=== PATIENT | female | born 1945 | race Caucasian/White ===

== ENCOUNTER 2017-01-22 21:52 | Emergency (ER) | payer MEDICARE, OTHER ==
--- NOTE | ~2017-01-22 | ER ---
PATIENT'S NAME: GERARDO DASILVA [facility] AGE: 71 Y [address] ROOM: [place] [id number] LOCATION: [facility] ADMIT DATE: 01/22/2017 ER/Outpatient Report DISCHARGE DATE: 01/22/2017 FAMILY PHYSICIAN: Edward Dee MD ATTENDING PHYSICIAN: Regan Cardenas ADDENDUM: Accumulated critical care time 30 minutes. MD DUSTIN RIBERA/modl /[id number] d: 01/23/17 0127 t: 01/23/17 1824, OUTPATIENT REPORT
--- NOTE | ~2017-01-22 | ER ---
PATIENT'S NAME: GERARDO DASILVA [facility] AGE: 71 Y [address] ROOM: [place] [address] LOCATION: [facility] ADMIT DATE: 01/22/2017 ER/Outpatient Report DISCHARGE DATE: 01/22/2017 FAMILY PHYSICIAN: Edward Dee MD ATTENDING PHYSICIAN: Regan Cardenas Admission date and time are documented on the medical record. I saw the patient at 2205 hours. CHIEF COMPLAINT: Right arm numbness and slurred speech. HISTORY OF PRESENT ILLNESS: This patient is a 71-year-old female who about an hour prior to admission to the emergency room had onset of some right arm numbness from her fingertips up to her midupper arm accompanied with some slurred speech. On arrival here to the emergency room, her numbness had pretty much resolved, and her slurred speech had resolved. The patient denied any headache, eyes, ears, nose, throat, neck, or spine pain. No fall or trauma. She has had a recent upper respiratory congestive problem; otherwise, no cough, colds, flus, fever, chills, or sweats. She was little bit lightheaded and dizzy, but no syncope or near syncope. No vertigo. No chest pain or shortness of breath. No abdominal pain, nausea, vomiting, or diarrhea. No urinary frequency, urgency, or dysuria. No joint or muscle swelling, redness, or pain. No skin eruptions or rash. No history of previous CVA, TIA, or seizure disorder. Does have hypothyroidism, but no diabetes. No depression, anxiety, or psychosis. HOME MEDICATIONS: See attached medication list. ALLERGIES: ERYTHROMYCIN, PENICILLIN. SOCIAL HISTORY: The patient smokes a pack of cigarettes per day and nondrinker. SIGNIFICANT PAST MEDICAL HISTORY: Atherosclerotic ischemic heart disease with coronary artery disease, carotid occlusive disease, tobacco abuse, dyslipidemia, and hypothyroidism. OPERATIONS: Cardiac catheterization with PTCA and stenting; also, had a carotid stent placed about 4 weeks ago. REVIEW OF SYSTEMS: PATIENT'S NAME: GERARDO DASILVA [facility] AGE: 71 Y [address] ROOM: [place] [address] LOCATION: [facility] ADMIT DATE: 01/22/2017 ER/Outpatient Report DISCHARGE DATE: 01/22/2017 FAMILY PHYSICIAN: Edward Dee MD ATTENDING PHYSICIAN: Regan Cardenas All systems reviewed by me are negative with the exception of those discussed in the history of present illness. PHYSICAL EXAMINATION: VITAL SIGNS: Blood pressure 141/71. [place] Coma Scale was 15. HEAD: Normocephalic. EYES: Extraocular muscles intact. PERRL. Sclerae and conjunctivae clear, nonicteric. EARS: Clear TMs bilaterally. NOSE: Clear. THROAT: Clear. Mucous membranes moist. Teeth, jaw intact. NECK: No nuchal rigidity. No thyromegaly or cervical adenopathy. No carotid bruits. No tenderness. SPINE: Negative. LUNGS: Clear. Good air flow. No rales, rhonchi, or wheezes. HEART: Regular. Pulses palpable. ABDOMEN: Soft, nondistended, nontender. Good bowel tones. No organomegaly or abnormal mass palpable. EXTREMITIES: Intact. No peripheral edema, cyanosis, or deformity. NEURO: NIH stroke scale was 0. SKIN: Clear. LABORATORY DATA: CT scans of the brain showed no acute hemorrhage, midline shift, mass effect, or skull fracture. CT scan was read by Radiology, see dictated transcribed report. Renal panel was normal. Accu-Chek was 106. White count was 8000, 44 segs, 43 lymphs, 9 monos, 3 eos, 1 baso, hemoglobin is 12.9 with hematocrit 39.6, and platelet count is 249,000. PTT was 26, pro-time is 10 with an INR 0.95. Troponin was less than 0.04. EKG showed sinus rhythm, some questionable inferior changes. No acute ST elevation or arrhythmia. IMPRESSION: 1. Transient right arm paresthesia with slurred speech, etiology uncertain, but may be a transient ischemic attack. No evidence of cerebrovascular accident at this time. Her NIH stroke scale was 0. CT scan of the head was negative. 2. Atherosclerotic ischemic heart disease with coronary artery disease. 3. Tobacco abuse. 4. Carotid occlusive disease. 5. Dyslipidemia. 6. Hypothyroidism. PLAN: The patient was dismissed home. Observation. Activity as tolerated. Continue present home medications and care. Fluids and diet as tolerated. PATIENT'S NAME: GEARRDO DASILVA [facility] AGE: 71 Y [address] ROOM: [place] [id number] LOCATION: [facility] ADMIT DATE: 01/22/2017 ER/Outpatient Report DISCHARGE DATE: 01/22/2017 FAMILY PHYSICIAN: Edward Dee MD ATTENDING PHYSICIAN: Regan Cardenas Follow up with personal physician 2 to 3 days for followup exam. Encouraged the patient to stop smoking. Discussed ensued with the patient concerning my findings and recommendations, she understands. MD DUSTIN RIBERA/modl /[id number] d: 01/23/17 0200 t: 01/23/171821, OUTPATIENT REPORT
[2017-01-22 22:09] LABS: BASOPHIL # 0.1 K/uL (0.0-0.2); BASOPHIL % 0.8 %; EOSINOPHIL # 0.2 K/uL (0.0-0.5); HEMATOCRIT 39.6 % (33.0-46.0); HEMOGLOBIN 12.9 g/dL (10.0-15.0); IMMATURE GRANULOCYTE % 0.3 %; LYMPHOCYTE # 3.4 K/uL (0.8-4.0); LYMPHOCYTE % 42.8 %; MCH 32.5 pg (27.0-34.0); MCHC 32.6 gm/dL (32.0-36.5); MCV 99.7 fl (83.0-98.0); MONOCYTE # 0.7 K/uL (0.0-1.0); MONOCYTE % 9.1 %; MPV 9.8 fl (9.4-12.4); NEUTROPHIL # (ANC) 3.5 K/uL (1.8-7.8); NRBC % 0 /100WBC (0-0.00); PLATELET COUNT 249 K/uL (150-450); RBC 3.97 M/uL (3.50-5.50); RDW-CV 13.8 % (11.9-14.6)
[2017-01-22 22:20] LABS: INR - (THERAPEUTIC) 0.95 (0.92-1.07); PTT 26 SECONDS (25-32)
[2017-01-22 22:54] LABS: ALBUMIN 3.8 gm/dL (3.5-5.0); ANION GAP 12.9 (10.0-19.0); BLOOD UREA NITROGEN 17 mg/dL (6-24); CALCIUM 9.2 mg/dL (8.5-10.5); CHLORIDE 109 mMol/L (96-110); CO2 24 mMol/L (22-32); CREATININE 0.9 mg/dL (0.5-1.1); ESTIMATED GFR (MDRD EQUATION) > 60; PHOSPHORUS 3.6 mg/dL (2.5-4.9); POTASSIUM 3.9 mMol/L (3.7-5.1); SODIUM 142 mMol/L (135-145)
== END 2017-01-22 23:19 | disposition disaster alternative care site (69) ==
LOC: GMED 21:52
PROVIDERS: Emergency Medicine
DX: R20.8 Other disturbances of skin sensation (principal); R47.81 Slurred speech; I25.10 Atherosclerotic heart disease of native coronary artery without angina pectoris; I65.29 Occlusion and stenosis of unspecified carotid artery; E78.5 Hyperlipidemia, unspecified; E03.9 Hypothyroidism, unspecified; F17.210 Nicotine dependence, cigarettes, uncomplicated; I11.9 Hypertensive heart disease without heart failure; I51.9 Heart disease, unspecified; Z88.0 Allergy status to penicillin; Z88.1 Allergy status to other antibiotic agents; Z79.82 Long term (current) use of aspirin; Z79.899 Other long term (current) drug therapy